=== PATIENT | male | born 1970 | race African-American/Black ===

== ENCOUNTER 2023-05-01 00:35 | Emergency (ER) | payer SELFPAY ==
[2023-05-01 00:42] VITALS: BP 148/104; PULSE 103; RESP 18; TEMP 36.2; O2SAT 98
--- NOTE | 2023-05-01 01:13 | ED.GENADULT ---
HPI - General Adult General Chief complaint: Dental/Oral Stated complaint: possible dental abcess Time Seen by Provider: 05/01/23 00:44 Source: patient Mode of arrival: ambulatory Limitations: no limitations History of Present Illness HPI narrative: This is a 53-year-old male who presents to the ED with chief complaint of left upper dental pain beginning 4 days ago. Reports he has had intermittent problems in the side of the mouth for several months and has a dentist appointment scheduled at the end of May. However he noticed a little bit more swelling in the left side of the face and some yellowish drainage in the last couple of days. No relief with ibuprofen and Tylenol. Denies fevers, chills, nausea, vomiting. Denies trismus, drooling. Related Data Allergies Allergy/AdvReac Type Severity Reaction Status Date / Time No Known Allergies Allergy Verified 05/01/23 00:48 Review of Systems Review of Systems: All systems as dictated in HPI Exam Narrative: GENERAL: Well-appearing, well-nourished, and in no acute distress. HEAD: Normocephalic, atraumatic. EYES: PERRLA and EOMI. ENT: Nares clear, no rhinorrhea or epistaxis. Mucous membranes moist. Oropharynx without tonsillar hypertrophy exudate or other lesions. NECK: Supple. No adenopathy or masses. CHEST: No respiratory distress. Clear to auscultation. No wheezes rales or rhonchi HEART: Regular rate and rhythm. No murmur heard. Normal peripheral pulses. ABDOMEN: Soft, nontender, nondistended, normal active bowel sounds. MSK: Normal range of motion. No edema. SKIN: Warm, dry, no rash. NEURO: Alert and oriented x3. No focal deficits. PSYCH: Normal mood and affect. Course Vital Signs Vital signs: Vital Signs Temperature 97.2 F L 05/01/23 00:42 Pulse Rate 103 H 05/01/23 00:42 Respiratory Rate 18 05/01/23 00:42 Blood Pressure 148/104 H 05/01/23 00:42 Pulse Oximetry 98 05/01/23 00:42 Oxygen Delivery Room Air 05/01/23 00:42 Temperature 97.2 F L 05/01/23 00:42 Pulse Rate 103 H 05/01/23 00:42 Respiratory Rate 18 05/01/23 00:42 Blood Pressure 148/104 H 05/01/23 00:42 Pulse Oximetry 98 05/01/23 00:42 Oxygen Delivery Room Air 05/01/23 00:42 Medical Decision Making MDM Narrative Medical decision making narrative: This is a male who presents to the ED with chief complaint of left upper dental pain ongoing for the past 4 days. This has been an intermittent problem for several weeks but he is unable to get into his dentist until the end of May. Vitals show initial slight tachycardia and elevated blood pressure likely due to pain. Afebrile. Exam shows tenderness in the maxillary area. Mild swelling as well. Floor the mouth is intact. No trismus or drooling. No pain with EOMs. Symptoms consistent with dental infection. Prescription for Augmentin and short course of Bath given. Pt will be discharged in stable condition. Return precautions given and supportive measures discussed. Pt is understanding and agreeable with plan for discharge and follow-up with PCP/dentist. Vital Signs Vital Signs: Vital Signs Temperature 97.2 F L 05/01/23 00:42 Pulse Rate 103 H 05/01/23 00:42 Respiratory Rate 18 05/01/23 00:42 Blood Pressure 148/104 H 05/01/23 00:42 Pulse Oximetry 98 05/01/23 00:42 Oxygen Delivery Room Air 05/01/23 00:42 Temperature 97.2 F L 05/01/23 00:42 Pulse Rate 103 H 05/01/23 00:42 Respiratory Rate 18 05/01/23 00:42 Blood Pressure 148/104 H 05/01/23 00:42 Pulse Oximetry 98 05/01/23 00:42 Oxygen Delivery Room Air 05/01/23 00:42 Discharge Plan Discharge Clinical Impression: Dental caries, Gingivitis Patient Disposition: Home, Self-Care Condition: Stable Instructions: Antibiotic Form, Toothache (ED) Additional Instructions: Your exam shows evidence of dental cavities and possible infection. Overall exam is reassuring and you should be able to g
[2023-05-01] MEDS: HYDROcodone/acetaminophen (*CRX) 7.5-325 MG TABLET 1 TAB PO (01:24)
[2023-05-01] MEDS: AMOXICILLIN/CLAVULANATE K 875-125 MG TAB 1 TABLET PO (01:24)
== END 2023-05-01 01:33 | disposition home or self-care (01) ==
LOC: ANHED 01:31
PROVIDERS: Emergency Provider Physician Assistant; PCP Internal Medicine
DX: K02.9 Dental caries, unspecified (principal); K05.10 Chronic gingivitis, plaque induced
CPT/HCPCS: 99283; A9270

== ENCOUNTER 2023-05-22 23:04 | Emergency (ER) | payer SELFPAY ==
[2023-05-22 23:15] VITALS: BP 119/87; PULSE 98; RESP 18; TEMP 36.4; O2SAT 97
--- NOTE | 2023-05-23 00:52 | PC.NURSE ---
Pt states he will come back to be seen in the morning.
== END 2023-05-23 01:11 | disposition left against medical advice (07) ==
PROVIDERS: PCP Internal Medicine
DX: R09.81 Nasal congestion (principal)
CPT/HCPCS: 99199

== ENCOUNTER 2024-11-26 23:57 | Emergency (ER) | payer SELFPAY ==
--- OUTSIDE RECORDS SUMMARY | 2024-11-26 23:59 | XMS_ITS | Clinical Summary ---
Author Organization [facility] Address [address] [place] [address] Phone Care Team Providers Care Seam Stay Stitcher Name Role Phone Unavailable Primary Care Provider Unavailabl e Allergies No known active allergies Medications amLODIPine (NORVASC) 10 mg Oral tablet Take 10 mg by mouth daily. Active hydroCHLOROthiaz isabel 25 mg tablet Take 25 mg by mouth daily. Active predniSONE (DELTASONE) 10 mg tablet Take 6 pills on day 1 , then 5 pills on day 2 then 4 pills on day 3 then 3 pills on day 4 then 2 pills on day 5 then 1 pill .. 21 Tablet None 8 Active methylPREDNISolo ne (MEDROL, ZAYDA,) 4 mg Tablets, Dose Pack As directed. 1 Package None 9 Active codeine-guaiFENe sin (ROBITUSSIN-AC) 10-100 mg/5 mL LiquidIndication s:Acute bronchitis, unspecified organism Take 10 mL by mouth every 4 hours as needed for Cough. 118 mL 9 Active fluticasone propionate (FLONASE) 50 mcg/spray [place], Suspension nasal inhaler Administer 2 Sprays in each nostril daily. 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 Gender Identity Not on file Sexual Orientation Not on file Occupation Industry Job Start Date Job End Date Not on file Not on file Not on file Not on file Last Filed Vital Signs Vital Sign Reading Time Taken Comments Blood Pressure 138/88 01/20/2019 2:06 AM CDT Pulse 82 01/20/2019 2:06 AM CDT Temperature 37.1 C (98.7 F) 01/20/2019 2:06 AM CDT Respiratory Rate 16 01/20/2019 12:39 AM CDT Oxygen Saturation 99% 01/20/2019 2:06 AM CDT Inhaled Oxygen Concentration - - Weight 124.7 kg (275 lb) 01/20/2019 12:39 AM CDT Height 190.5 cm (6' 3 ) 01/20/2019 12:39 AM CDT Body Mass Index 34.37 01/20/2019 12:39 AM CDT Plan of Treatment Health Maintenance Due Date Last Done Comments DTAP/TDAP/TD VACCINES (1 - Tdap) 01/03/1988 HEPATITIS B VACCINES (1 of 3 - 19+ 3-dose series) 12/15 COLORECTAL SCREENING 2014 Colorectal Cancer Screening 2014 FIT-DNA Q 3 years 2014 FIT/FOBT Q 1 year 2014 Flex Sig/CT Colonography Q 5 years 2014 ZOSTER VACCINE (1 of 2) 2019 INFLUENZA VACCINE (#1) 2024 05/13/2018
--- OUTSIDE RECORDS SUMMARY | 2024-11-26 23:59 | XMS_ITS | Referral Summary ---
Author Organization [facility] Address [address] [place] [address] Care Team Providers Care Release Of Information Clerk Name Role Phone Sunny Villanueva MD Unavailable [phone] No, Physician Primary Care Provider [phone] Jeffrey Haas MA Unavailable Unavailable Angel Luis Fritz MD Unavailable [phone] Allergies No known active allergies Medications olopatadine (PATANOL) 0.1 % ophthalmic solutionIndication s:Allergic Conjunctivitis Administer 1 drop into both eyes 2 (two) times a day 5 mL 1 0 Active fluticasone propionate (FLONASE) 50 mcg/actuation nasal spray Administer 1 spray into each nostril 2 (two) times a day as needed for rhinitis Active aspirin 325 mg tabletIndications: cerebral ischemia,Cerebral Ischemia Take 1 tablet (325 mg total) by mouth daily 30 tablet 11 2 Active amLODIPine (NORVASC) 10 mg tablet Take 1 tablet (10 mg total) by mouth daily 30 tablet 1 2 Active butalbital-acetami nophen-caffeine (ESGIC) 50-325-40 mg per tablet Take 1 tablet by mouth every 6 (six) hours as needed for headaches 15 tablet 2 Active hydroCHLOROthiazid e (HYDRODIURIL) 25 mg tablet Take 1 tablet (25 mg total) by mouth daily 30 tablet 1 2 Active Active Problems Problem Noted Date Diagnosed Date Acute left-sided weakness 06/11/2022 Left-sided headache 06/11/2022 Acute CVA (cerebrovascular accident) 06/11/2022 Pneumonia due to COVID-19 virus 08/07/2020 Chest pain 07/19/2012 Gouty arthritis of toe 02/13/2012 Prediabetes Essential hypertension Stroke-like symptoms Resolved Problems Problem Noted Date Diagnosed Date Resolved Date URI (upper respiratory infection) 07/19/2012 10/30/2018 Essential hypertension 02/13/201208/07 Acute pharyngitis 10/30/2018 Immunizations Immunization Administration Dates Next Due Influenza, Quadrivalent, Lucia l Culture-based MDCK, Preservative Free, Antibiotic Free, Intramuscular 04/17/2019 Influenza, Quadrivalent, Spl it, Preservative Free, Intramuscular 05/13/2018 Influenza, Unspecified 06/15/2020 Social History Tobacco Use Types Packs/Day Years Used Date Smoking Tobacco: Never Smokeless Tobacco: Never Alcohol Use Standard Drinks/Week Comments Yes 0 (1 standard drink = 0.6 oz pur e alcohol) occasionally Social Connection and Isolat ion Panel [NHANES] Answer Date Recorded In a typical week, how many times do you talk on the phone with family, friends, or neighbors? Three times a week 06/12/2022 How often do you get togethe r with friends or relatives? More than three times a week 06/12/2022 How often do you attend chur ch or latter-day services? More than 4 times per year 06/12/2022 Do you belong to any clubs o r organizations such as baptism groups, unions, fraternal or athletic groups, or school groups? No 06/12/2022 How often do you attend meet ings of the clubs or organizations you belong to? Never 06/12/2022 Are you , , di vorced, , never , or living with a partner? Never 06/12/2022 Overall Financial Resource Strain (CARDIA) Answe r Date Recorded How hard is it for you to pa y for the very basics like food, housing, medical care, and heating? Not very hard 06/12/2022 Hunger Vital Sign Answer Date Recorded Within the past 12 months, y ou worried that your food would run out before you got the money to buy more. Never true 06/12/20 22 Within the past 12 months, t he food you bought just didn't last and you didn't have money to get more. Never true 06/12/2022 PRAPARE - Transportation Answer Date Re corded In the past 12 months, has l ack of transportation kept you from medical appointments or from getting medications? No 05/17 In the past 12 months, has l ack of transportation kept you from meetings, work, or from getting things needed for daily living? No 06/12/2022 Housing Stability Vital Sign Answer Reddy e Recorded In the last 12 months, was t here a time when you were not able to pay the mortgage or rent on time? No 06/12/2022 In the last 12 months, how many places have you lived? 1 06/12/2022 In the last 12 months, was t here a time when you did not have a steady place to sleep or slept in a fdc (including now)? 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 Gender Identity Not on file Sexual Orientation Not on file Last Filed Vital Signs Vital Sign Reading Time Taken Comments Blood Pressure 158/97 06/12/2022 3:45 PM CIDER PRESS OPERATOR Pulse 77 06/12/2022 3:45 PM CIDER PRESS OPERATOR Temperature 36.8 C (98.3 F) 06/12/2022 3:45 PM CIDER PRESS OPERATOR Respiratory Rate 18 06/12/2022 3:45 PM CIDER PRESS OPERATOR Oxygen Saturation 99% 06/12/2022 3:45 PM CIDER PRESS OPERATOR Inhaled Oxygen Concentration - - Weight 133 kg (293 lb 4.8 oz) 06/11/2022 7:10 PM CIDER PRESS OPERATOR Height 190.5 cm (6' 3 ) 06/11/2022 7:10 PM CIDER PRESS OPERATOR Body Mass Index 36.66 06/11/2022 7:10 PM CIDER PRESS OPERATOR Plan of Treatment Not on file Procedures Procedure Name Priority Date/Time Associated Diagnosis Comments EGFR Routine 06/12/2022 5:34 AM CIDER PRESS OPERATOR HEMOGLOBIN A1C Routine 06/12/2022 5:34 AM CIDER PRESS OPERATOR LIPID PANEL Routine 06/12/2022 5:34 AM CIDER PRESS OPERATOR from Last 3 Months or Most Recently Relevant to Health Maintenance Results * eGFR (06/12/2022 5:34 AM CIDER PRESS OPERATOR) eGFR 79 mL/min/1. 73 m2 [facility] Comment: Interpretive Data Reference Interval Normal >/= 90 mL/min/1.73m2 Mildly decreased* 60 - 89 mL/min/1.73m2 Mildly to moderately decreased 45 - 59 mL/min/1.73m2 Moderately to severely decreased 30 - 44 mL/min/1.73m2 Severely decreased 15 - 29 mL/min/1.73m2 Kidney Failure < 15 mL/min/1.73m2 *Relative to young adult level Estimated glomerular filtration rate is determined by the 2020 CKD-EPI equation recommended by the National Kidney Foundation (A Unifying Approach to GFR Estimation: Recommendations of the NKF-ASK Task Force on Reassessing the Inclusion of Race in Diagnosing Kidney Disease, JASN 2020). The CKD-EPI equation should not be used for patients with unstable renal function and has not been validated in children and those over 70. Current interpretive data was last reviewed 2021. Blood 06/12/2022 5:34 AM CIDER PRESS OPERATOR 06/12/2022 6:28 AM CIDER PRESS OPERATOR Sebastien Jackson DO LAB BLOOD ORDERABLES Fi nal Result [facility] [address] Department [place] [address] * Hemoglobin A1c (06/12/2022 5:34 AM CIDER PRESS OPERATOR) Pathologist [facility] Hgb A1C 5.6 4.0 - 5.6 % [facility] Estimated Average Glucose 114 mg/dL [facility] Comment: The ADA recommends reporting an estimated Average Glucose (eAG) with all Hemoglobin A1c results using the equation derived from a study of 507 normal and diabetic adults. Minority populations were underrepresented and children were not included. (Diabetes Care 31:7197-8083, 2008). The eAG is not equivalent to a fasting glucose. Blood 06/12/2022 5:34 AM CIDER PRESS OPERATOR 06/12/2022 6:28 AM CIDER PRESS OPERATOR us Sebastien Jackson DO LAB BLOOD ORDERABLES Fi nal Result [facility] [address] Department [place] [address] * Lipid panel (06/12/2022 5:34 AM CIDER PRESS OPERATOR) Cholesterol 193 30 - 199 mg/dL [facility] Comment: Interpretive Data Ages < or = 19 years Acceptable: <170 mg/dL Borderline high: 170-199 mg/dL High: >or= 200 mg/dL Ages > or = 20 years Desirable: <200 mg/dL Borderline high: 200-239 mg/dL High: >or= 240 mg/dL Literature References: 1. Expert Panel on Integrated Guidelines for Cardiovascular Health and Risk Reduction in Children and Adolescents. Pediatrics 2011;128:S213 2. NCEP Expert Panel. Circulation 2004;110:227 Current Interpretive Data was last revised on 2018. Triglycerides 104 <=149 mg/dL [facility] Comment: Interpretive Data Ages < or = 9 years Acceptable: <75 mg/dL Borderline high: 75-99 mg/dL High: >or= 100 mg/dL Ages 10 to 20 years Acceptable: <90 mg/dL Borderline high: 90-129 mg/dL High: >or= 130 mg/dL Ages > or = 20 years Desirable: <150 mg/dL Borderline high: 150-199 mg/dL High: 200-499 mg/dL Very high: >or= 499 mg/dL Literature References: 1. Expert Panel on Integrated Guidelines for Cardiovascular Health and Risk Reduction in Children and Adolescents. Pediatrics 2011;128:S213 2. NCEP Expert Panel. Circulation 2004;110:227 Current Interpretive Data was last revised on 2018. HDL 43 >=40 mg/dL [facility] Comment: Interpretive Data Ages < or = 19 years Acceptable: >45 mg/dL Borderline low: 40-45 mg/dL Low: <40 mg/dL Ages > or = 20 years Desirable: >or= 60 mg/dL Low: <40 mg/dL Literature References: 1. Expert Panel on Integrated Guidelines for Cardiovascular Health and Risk Reduction in Children and Adolescents. Pediatrics 2011;128:S213 2. NCEP Expert Panel. Circulation 2004;110:227 Current Interpretive Data was last revised on 2018. LDL, calculated 129 <=129 mg/dL [facility] Comment: Interpretive Data Ages < or = 19 years Acceptable: <110 mg/dL Borderline high: 110-129 mg/dL High: >or= 130 mg/dL Ages > or = 20 years Optimal: <100 mg/dL Near optimal: 100-129 mg/dL Borderline high: 130-159 mg/dL High: >160 mg/dL Literature References: 1. Expert Panel on Integrated Guidelines for Cardiovascular Health and Risk Reduction in Children and Adolescents. Pediatrics 2011;128:S213 2. NCEP Expert Panel. Circulation 2004;110:227 Current Interpretive Data was last revised on 2018. Non-HDL Cholesterol 150 mg/dL [facility] Comment: Interpretive Data Ages < or = 19 years Acceptable: <120 mg/dL Borderline high: 120-144 mg/dL High: >145 mg/dL Ages > or = 20 years When triglycerides are >200 mg/dL, Non-HDL cholesterol is a secondary target of therapy with treatment goals that are 30 mg/dL greater than the LDL cholesterol target. Literature References: 1. Expert Panel on Integrated Guidelines for Cardiovascular Health and Risk Reduction in Children and Adolescents. Pediatrics 2011;128:S213 2. NCEP Expert Panel. Circulation 2004;110:227 Current Interpretive Data was last revised on 2018. Chol/HDL ratio 4 [facility] Blood 06/12/2022 5:34 AM CIDER PRESS OPERATOR 06/12/2022 6:28 AM CIDER PRESS OPERATOR Sebastien Jackson DO LAB BLOOD ORDERABLES Fi nal Result [facility] [address] [place] [address] from Last 3 Months or Most Recently Relevant to Health Maintenance Insurance MEDICARE MEDICARE MEDICARE Advance Directives For more information, please contact: [phone] * Full Code (Latest Code Status on File) Date Activated Date Inactivated Comments 06/11/2022 7:01 PM 06/12/2022 10:19 PM * Full Code Date Activated Date Inactivated Comments 08/07/2020 3:35 AM 08/09/2020 6:09 PM * Full Code Date Activated Date Inactivated Comments 08/07/2020 12:47 AM 08/07/2020 3:05 AM * Full Code Date Activated Date Inactivated Comments 12/26/2017 7:06 PM 12/28/2017 3:49 PM Care Teams Release Of Information Clerk Relationship Specialty Start Date End Date No, Physician PCP - General 08/29/21 Sunny Villanueva MD 01/18/19 Jeffrey Haas MA [address] [facility] [address] [place] [address] Patient Navigator 12/20/21 Angel Luis Fritz MD [address] [facility] [address] [place] [address] Consulting Physician Neurology 06/12/22
--- OUTSIDE RECORDS SUMMARY | 2024-11-26 23:59 | XMS_ITS | Clinical Summary ---
Author Organization [facility] Address [address] [place] [address] Care Team Providers Care Guest Services Agent Name Role Phone Sunny Villanueva MD Primary Care Provider [phone] Source Comments [facility],non-owned Affiliates and Associated Physician Practices is amultiple site organization consisting of ambulatory clinics and hospital sitesin [place], [place], [place] and [place]. This disclosure is being madepursuant to the Care Everywhere program and may not contain all information available regarding this patient. Last updated 18.[facility] Allergies No known active allergies Medications * Be aware that medications may not be up to date on this document. Alwaysverify current medications with the patient. albuterol (PROVENTIL; VENTOLIN) 90 MCG/ACT inhaler Inhale 1-2 Puffs by mouth every 4 hours as needed for Shortness of Breath or Wheezing. 1 Inhaler 0 3 Active Additional Information Patient not taking.Reported on 01/18/2022 allopurinol (ZYLOPRIM) 100 MG tablet Take 1 (one) tablet by mouth once daily 30 tablet 2 Active acetaminophen (TYLENOL) 325 MG tablet Take 2 (two) tablets by mouth every 6 hours as needed for Fever or Pain Maximum allowable Acetaminophen amount = 4 Grams (4000 mg) / 24 hours. 60 tablet 2 Active Additional Information Patient not taking.Reported on 01/18/2022 HYDROcodone-ac etaminophen (NORCO) 5-325 MG tablet Take 1 (one) tablet by mouth every 6 hours as needed for Pain 5 tablet 2 Active Additional Information Patient not taking.Reported on 01/18/2022 amLODIPine (NORVASC) 5 MG tablet 2 Active aspirin EC (ECOTRIN) 81 MG tablet Take 81 mg by mouth once daily 1 Active fluticasone propionate (FLONASE) 50 MCG/ACT nasal spray SHAKE LIQUID AND USE 2 SPRAYS IN EACH NOSTRIL DAILY 2 Active hydroCHLOROthi azide (HYDRODIURIL) 25 MG tablet TAKE 1 TABLET BY MOUTH EVERY DAY IN THE MORNING 2 Active olopatadine (PATADAY) 0.2 % ophthalmic solution 2 Active Active Problems Problem Noted Date Diagnosed Date URI (upper respiratory infection) 07/19/2012 Chest pain 07/19/2012 Gouty arthritis of toe 02/13/2012 HTN (hypertension) 02/13/2012 Social History Tobacco Use Types Packs/Day Years Used Date Smoking Tobacco: Never Smokeless Tobacco: Never Tobacco Cessation:Counseling Given: Yes Alcohol Use Standard Drinks/Week Comments No 0 (1 standard drink = 0.6 oz pur e alcohol) once a week AUDIT-C Answer Date Recorded Q1: How often do you have a drink containing alc ohol? Never 10/12/2021 Average Number of Drinks Not on file 022 Frequency of Binge Drinking Not on file 09/15 Sex and Gender Information Value Date Recorded Sex Assigned at Not on file Legal Sex Male 4:34 PM CDT Gender Identity Not on file Sexual Orientation Not on file Last Filed Vital Signs Vital Sign Reading Time Taken Comments Blood Pressure 136/95 01/18/2022 7:45 PM CDT Pulse 101 01/18/2022 7:45 PM CDT Temperature 36.7 C (98 F) 01/18/2022 7:45 PM CDT Respiratory Rate 18 01/18/2022 7:45 PM CDT Oxygen Saturation 98% 01/18/2022 7:45 PM CDT Inhaled Oxygen Concentration - - Weight 127 kg (280 lb) 01/18/2022 7:45 PM CDT Height 182.9 cm (6') 01/18/2022 7:45 PM CDT Body Mass Index 37.97 01/18/2022 7:45 PM CDT Plan of Treatment Health Maintenance Due Date Last Done Comments COLOGUARD (AGES 45-75) - COLON CA SCREENING 1969 COLON MONITORING 1969 COLONOSCOPY - COLON CA SCREENING 1969 CT COLONOGRAPHY - COLON CA SCREENING 1969 Colorectal Cancer Screening 1969 FIT - COLON CA SCREENING 1969 FLEX SIG - COLON CA SCREENING 1969 MEDICARE AWV 12 MONTHS 1969 HIV SCREENING 01/03/1984 HEPATITIS C SCREENING 12/29/1986 DTAP/TDAP/TD VACCINES (1 - Tdap) 01/03/1988 HEPATITIS B VACCINE (1 of 3 - 19+ 3-dose series) 01/03/1988 PNEUMOCOCCAL VACCINE 50+ (1 of 1 - PCV) 2019 ZOSTER VACCINE (1 of 2) 2019 COVID-19 VACCINE (1 - 2023- season) 2024 DEPRESSION SCREENING 07/16/2024 INFLUENZA VACCINE (Season Ended) 2025 05/25/2021, 06/15/2020, 04/23/2020, Additional history exists LIPID TESTING 09/04/2026 09/04/2021 HIB VACCINE Aged Out No longer eligi ble based on patient's age to complete this topic HPV VACCINE Aged Out No longer eligi ble based on patient's age to complete this topic MENINGOCOCCAL (Group B) VACCINE SHARED DECISION-MAKING Aged Out No longer eligible based on patient's age to complete this topic MENINGOCOCCAL GROUPS A/C/Y/W VACCINE Aged Out No longer eligible based on patient's age to complete this topic Insurance MEDICARE Care Teams Guest Services Agent Relationship Specialty Start Date End Date Sunny Villanueva MD PCP - General Internal Medicine 03/17/17
--- OUTSIDE RECORDS SUMMARY | 2024-11-26 23:59 | XMS_ITS | Clinical Summary ---
Author Organization [facility] Address [address] [place] [address] Care Team Providers Care Brim Raiser Name Role Phone Sunny Villanueva MD Unavailable [phone] No, Physician Primary Care Provider [phone] Jeffrey Haas MA Unavailable Unavailable Angel Luis Fritz MD Unavailable [phone] Allergies No known active allergies Medications olopatadine [...] Preservative Free, Intramuscular 05/13/2018 Influenza, Unspecified 06/15/2020 Surgical History Surgery Date Site/Laterality Comments TUBE THORACOTOMY Bilateral Medical History Medical History Date Comments Hypertension Gout Seasonal allergies Obesity Hyperglycemia Patient with his tory of hyperglycemia in the past, treated transiently for diabetes but not currently consider diabetic or prediabetic and on no medication for hyperglycemia Diabetes mellitus (HCC) Family History Relation Name Status Comments Father Father of end-stage renal disease Mother Mother of liver cancer Social History Tobacco Use Types Packs/Day Years [...] 06/12/2022 How often do you attend chur or islam services? More than 4 times per year 06/12/2022 Do you belong to any clubs o r organizations such as restorationist groups, unions, fraternal or athletic groups, or [...] place to sleep or slept in a assisted (including now)? No 06/12/2022 Personal Safety Answer Date Recorded Getting School Help Needed Not on file 06/29 Sex and Gender Information Value Date Recorded Sex Assigned at Not on file Legal Sex Male 1:21 AM SPORTS MEDICINE MASSEUR Gender Identity Not on file Sexual Orientation Not on file Obstetrics History Last Filed Vital Signs Vital Sign Reading Time Taken Comments Blood Pressure 158/97 06/12/2022 3:45 PM SPORTS MEDICINE MASSEUR Pulse 77 06/12/2022 3:45 PM SPORTS MEDICINE MASSEUR Temperature 36.8 C (98.3 F) 06/12/2022 3:45 PM SPORTS MEDICINE MASSEUR Respiratory Rate 18 06/12/2022 3:45 PM SPORTS MEDICINE MASSEUR Oxygen Saturation 99% 06/12/2022 3:45 PM SPORTS MEDICINE MASSEUR Inhaled Oxygen Concentration - - Weight 133 kg (293 lb 4.8 oz) 06/11/2022 7:10 PM SPORTS MEDICINE MASSEUR Height 190.5 cm (6' 3 ) 06/11/2022 7:10 PM SPORTS MEDICINE MASSEUR Body Mass Index 36.66 06/11/2022 7:10 PM SPORTS MEDICINE MASSEUR Plan of Treatment Health Maintenance Due Date Last Done Comments Albumin Creatinine Ratio, Urine 1969 Colon Cancer Screening-Colonoscopy 1969 Depression Screening 1969 Hepatitis C Screening 1969 Prostate Cancer Screening-PSA 1969 Dilated Eye Exam 1969 Foot Exam 1969 DTaP/Tdap/Td Vaccine (1 - Tdap) 01/03/1980 Hepatitis B Screening 1987 Regular Well Visit/Exam 18-64 1987 Pneumococcal vaccine <65 (1 of 2 - PCV) 01/03/1988 Zoster Vaccine (1 of 2) 2019 Hemoglobin A1C 12/10/2022 06/12/2022, 07/17, 12/20/2018, Additional history exists Lipid Panel 06/12/2023 06/12/2022, 08/17, 12/26/2017, Additional history exists eGFR 06/12/2023 06/12/2022, 05/17, 07/09/2021, Additional history exists Influenza Vaccine (#1) 2024 , 05/25/2021, 06/15/2020, Additional history exists Procedures Procedure Name Priority Date/Time Associated Diagnosis Comments EGFR Routine 06/12/2022 5:34 AM SPORTS MEDICINE MASSEUR HEMOGLOBIN A1C Routine 06/12/2022 5:34 AM SPORTS MEDICINE MASSEUR LIPID PANEL Routine 06/12/2022 5:34 AM SPORTS MEDICINE MASSEUR from Last 3 Months or Most Recently Relevant to Health Maintenance Results * eGFR (06/12/2022 5:34 AM SPORTS MEDICINE MASSEUR) eGFR 79 mL/min/1. 73 m2 [facility] Comment: Interpretive Data Reference Interval Normal >/= [...] last reviewed 2021. Blood 06/12/2022 5:34 AM SPORTS MEDICINE MASSEUR 06/12/2022 6:28 AM SPORTS MEDICINE MASSEUR Sebastien Jackson DO LAB BLOOD ORDERABLES Fi nal Result Performing Organization Address [facility] Co de Phone Number [facility] [address] [place] [address] * Hemoglobin A1c (06/12/2022 5:34 AM SPORTS MEDICINE MASSEUR) Hgb A1C 5.6 4.0 - 5.6 % [facility] Estimated Average Glucose 114 mg/dL [facility] Comment: The ADA recommends reporting an estimated Average Glucose (eAG) with all Hemoglobin A1c results using the equation derived from a study of 507 normal and diabetic adults. Minority populations were underrepresented and children were not included. (Diabetes Care 31:0072-3809, 2008). The eAG is not equivalent to a fasting glucose. Blood 06/12/2022 5:34 AM SPORTS MEDICINE MASSEUR 06/12/2022 6:28 AM SPORTS MEDICINE MASSEUR Sebastien Jackson DO LAB BLOOD ORDERABLES Fi nal Result Performing Organization Address [facility] Co de Phone Number [facility] [address] [place] [address] * Lipid panel (06/12/2022 5:34 AM SPORTS MEDICINE MASSEUR) Cholesterol 193 30 - 199 mg/dL [facility] Comment: Interpretive Data Ages < or = [...] revised on 2018. Triglycerides 104 <=149 mg/dL [facility] Comment: Interpretive Data Ages < or = [...] Pediatrics 2011;128:S213 2. NCEP Expert Panel. Circulation 2003;110:227 Current Interpretive Data was last revised on 2018. HDL 43 >=40 mg/dL [facility] Comment: Interpretive Data Ages < or = 19 years Acceptable: >45 mg/dL Borderline low: 40-45 mg/dL Low: <40 mg/dL Ages > or = 20 years Desirable: >or= 60 mg/dL Low: <40 mg/dL Literature References: 1. Expert Panel on Integrated Guidelines for Cardiovascular Health and Risk Reduction in Children and Adolescents. Pediatrics 2011;128:S213 2. NCEP Expert Panel. Circulation 2003;110:227 Current Interpretive Data was last revised on 2018. LDL, calculated 129 <=129 mg/dL [facility] Comment: Interpretive Data Ages < or = [...] Pediatrics 2011;128:S213 2. NCEP Expert Panel. Circulation 2003;110:227 Current Interpretive Data was last revised on 2018. Non-HDL Cholesterol 150 mg/dL [facility] Comment: Interpretive Data Ages < or = [...] last revised on 2018. Chol/HDL ratio [address] [facility] Blood 06/12/2022 5:34 AM SPORTS MEDICINE MASSEUR 06/12/2022 6:28 AM SPORTS MEDICINE MASSEUR Sebastien Jackson DO LAB BLOOD ORDERABLES nal Result [facility] [address] [place] [address] from Last 3 Months or Most Recently Relevant to Health Maintenance Insurance MEDICARE [facility] Address: [address] [address] [place] [address] MEDICARE MEDICARE Advance Directives For more information, please contact: [phone] * Full Code (Latest Code Status on File) Date Activated Date Inactivated Comments 06/11/2022 7:01 PM 06/12/2022 10:19 PM * Full Code Date Activated Date Inactivated Comments 08/07/2020 3:35 AM 08/09/2020 6:09 PM * Full Code Date Activated Date Inactivated Comments 08/07/2020 12:47 AM 08/07/2020 3:05 AM * Full Code Date Activated Date Inactivated Comments 12/26/2017 7:06 PM 12/28/2017 3:49 PM Care Teams Brim Raiser Relationship Specialty Start Date End Date No, Physician PCP - General 08/29/21 Sunny Villanueva MD 01/18/19 Jeffrey Haas, MA [address] [place] [address] [place] [address] Patient Navigator 12/20/21 Angel Luis Fritz MD [address] [address] Consulting Physician Neurology 06/12/22
--- OUTSIDE RECORDS SUMMARY | 2024-11-26 23:59 | XMS_ITS | Clinical Summary ---
Author Organization [facility] Address [address] [place] [address] Care Team Providers Care Server Systems Administrator Name Role Phone Sunny Villanueva MD Primary Care Provider [phone] Allergies No known active allergies Medications ondansetron (ZOFRAN-ODT) 4 MG disintegrating tablet Take 1 tablet (4 mg total) by mouth every 8 (eight) hours as needed for Nausea. 20 tablet 3 Active fluticasone propionate (FLONASE) 50 MCG/ACT nasal spray 1 spray by Nasal route daily. 16 g 1 3 Active predniSONE (DELTASONE) 20 MG tablet Take 2 tablets (40 mg total) by mouth daily for 4 days, THEN 1 tablet (20 mg total) daily for 3 days, THEN 0.5 tablets (10 mg total) daily for 3 days., 10 tablet 3 Active amLODIPine (NORVASC) 10 MG tablet Take 1 tablet (10 mg total) by mouth daily. 30 tablet 3 Active hydroCHLOROthiazide (HYDRODIURIL) 25 MG tablet Take 1 tablet (25 mg total) by mouth every morning. 30 tablet 3 Active HYDROcodone-acetami nophen (NORCO) 5-325 MG tabletIndications:A cute Pain < 3 Day Supply Take 1 tablet by mouth every 6 (six) hours as needed. Indications: Acute Pain < 3 Day Supply 10 tablet 3 Active Active Problems No known active problems Social History Tobacco Use Types Packs/Day Years Used Date Smoking Tobacco: Unknown Tobacco Cessation:Counseling Given: Not Answered Sex and Gender Information Value Date Recorded Sex Assigned at Not on file Legal Sex Male 8:02 PM CDT Gender Identity Not on file Sexual Orientation Not on file Last Filed Vital Signs Vital Sign Reading Time Taken Comments Blood Pressure 132/105 01/03/2023 1:38 AM CDT Pulse 102 01/03/2023 1:38 AM CDT Temperature 36.6 C (97.8 F) 01/03/2023 1:38 AM CDT Respiratory Rate 16 01/03/2023 1:38 AM CDT Oxygen Saturation 97% 01/03/2023 1:38 AM CDT Inhaled Oxygen Concentration - - Weight 127.7 kg (281 lb 8.4 oz) 01/03/2023 1:38 AM CDT Height 190.5 cm (6' 3 ) 01/03/2023 1:38 AM CDT Body Mass Index 35.19 01/03/2023 1:38 AM CDT Plan of Treatment Health Maintenance Due Date Last Done Comments Colorectal Cancer Screening Colonoscopy (10 Years) 1969 Annual Physical 01/03/1972 Hepatitis C 1987 DTaP, Tdap and Td Vaccines ( 1 - Tdap) 01/03/1988 Hepatitis B Vaccines (1 of 3 - 19+ 3-dose series) 01/03/1988 Pneumococcal Vaccine: 50+ Ye ars (1 of 1 - PCV) 2019 Zoster Vaccines (1 of 2) 2019 COVID-19 Vaccine ( - 2023-2 5 season) 2024 Meningococcal B Vaccine Aged Out No l onger eligible based on patient's age to complete this topic Meningococcal Vaccine Aged Out No manju galen eligible based on patient's age to complete this topic RSV Immunizations Under 20 Months Aged Out No longer eligible based on patient's age to complete this topic Insurance MEDICARE Care Teams Server Systems Administrator Relationship Specialty Start Date End Date Sunny Villanueva MD PCP - General INTERNAL MEDICINE 11/27/17
[2024-11-27 00:01] VITALS: BP 139/94; PULSE 84; RESP 14; TEMP 36.8; O2SAT 97
--- NOTE | 2024-11-27 00:24 | ED.GENADULT ---
HPI - General Adult General Chief complaint: Dental/Oral Stated complaint: Upper left jaw pain from broken tooth Time Seen by Provider: 11/27/24 00:05 History of Present Illness HPI narrative: This is a 54-year-old male presenting with dental pain. Has poor dentition has multiple missing teeth. His left upper premolar/incisors have been hurting. He has not seen a dentist yet as he cannot afford it. Related Data Allergies Allergy/AdvReac Type Severity Reaction Status Date / Time No Known Allergies Allergy Verified 11/26/24 23:58 Exam Narrative: APPEARANCE: No apparent distress. Head: Very poor dentition with multiple teeth rotted below the gum line, no evidence of abscess or ludwigs EYES: EOMI, NOSE: Atraumatic NECK: Trachea midline RESPIRATORY: No increased rate of breathing CARDIOVASCULAR: RRR, ABDOMINAL: Non-distended MUSCULOSKELETAl: No obvious deformities NEURO: Alert. Moving 4/4 extremities SKIN:: Warm, dry. Normal color PSYCHIATRIC: Normal affect Course Vital Signs Vital signs: Vital Signs Temperature 98.2 F 11/27/24 00:01 Pulse Rate 84 11/27/24 00:01 Respiratory Rate 14 11/27/24 00:01 Blood Pressure 139/94 H 11/27/24 00:01 Pulse Oximetry 97 11/27/24 00:01 Temperature 98.2 F 11/27/24 00:01 Pulse Rate 84 11/27/24 00:01 Respiratory Rate 14 11/27/24 00:01 Blood Pressure 139/94 H 11/27/24 00:01 Pulse Oximetry 97 11/27/24 00:01 Medical Decision Making [facility] Narrative Medical decision making narrative: -Course: 54-year-old male presenting for dental pain. The options presented the patient or a dental block or oral pain medication. I explained to the patient that I would give him opiate pain medication here in the ED but I would not give him any opiate prescriptions. The patient declined the oxycodone, Tylenol and dental block and said he would take a shot of Toradol. He then left the ER immediately after I left the room. -DDX includes but is not limited to: Dental caries, toothache dental infection, drug seeking Vital Signs Vital Signs: Vital Signs Temperature 98.2 F 11/27/24 00:01 Pulse Rate 84 11/27/24 00:01 Respiratory Rate 14 11/27/24 00:01 Blood Pressure 139/94 H 05/15/25 00:01 Pulse Oximetry 97 11/27/24 00:01 Temperature 98.2 F 11/27/24 00:01 Pulse Rate 84 11/27/24 00:01 Respiratory Rate 14 11/27/24 00:01 Blood Pressure 139/94 H 11/27/24 00:01 Pulse Oximetry 97 11/27/24 00:01 Discharge Plan Discharge Clinical Impression: Toothache Patient Disposition: Elopement After Seen by Prov Patient Language: Kenyan Prescriptions: No Action hydrocodone-acetaminophen 5-325 mg tablet 1 tablet PO Q8H PRN (Reason: pain) Qty: 12 0RF amoxicillin-pot clavulanate 875-125 mg tablet 1 tablet PO Q12H Qty: 14 0RF Follow-up/Referrals: Rich,MD Sunny [Primary Care Provider] - Stand Alone Forms: Work/School Release IP
--- NOTE | 2024-11-27 00:25 | PC.NURSE ---
Pt came to triage from treatment room stating that he did not want to stay after being seen by ERP. Pt axox4 and steady gait.
--- OUTSIDE RECORDS SUMMARY | 2024-11-27 00:36 | XMS_ITS | Clinical Summary ---
Author Organization [facility] Address [address] [place] [address] Care Team Providers Care Dealer Compliance Representative Name Role Phone Sunny Villanueva MD Unavailable [phone] No, Physician Primary Care Provider [phone] Jeffrey Haas MA Unavailable Unavailable Angel Luis Fritz MD Unavailable [phone] Allergies No known active allergies Medications olopatadine [...] How often do you attend chur or scientologist services? More than 4 times per year 06/12/2022 Do you belong to any clubs o r organizations such as temple groups, unions, fraternal or athletic groups, or [...] place to sleep or slept in a chcf (including now)? No 06/12/2022 Personal Safety Answer Date Recorded Getting School Help Needed Not on file 06/29 Sex and Gender Information Value Date Recorded Sex Assigned at Not on file Legal Sex Male 1:21 AM RIDE OPERATOR Gender Identity Not on file Sexual Orientation Not on file Obstetrics History Last Filed Vital Signs Vital Sign Reading Time Taken Comments Blood Pressure 158/97 06/12/2022 3:45 PM RIDE OPERATOR Pulse 77 06/12/2022 3:45 PM RIDE OPERATOR Temperature 36.8 C (98.3 F) 06/12/2022 3:45 PM RIDE OPERATOR Respiratory Rate 18 06/12/2022 3:45 PM RIDE OPERATOR Oxygen Saturation 99% 06/12/2022 3:45 PM RIDE OPERATOR Inhaled Oxygen Concentration - - Weight 133 kg (293 lb 4.8 oz) 06/11/2022 7:10 PM RIDE OPERATOR Height 190.5 cm (6' 3 ) 06/11/2022 7:10 PM RIDE OPERATOR Body Mass Index 36.66 06/11/2022 7:10 PM RIDE OPERATOR Plan of Treatment Health Maintenance Due Date [...] Diagnosis Comments EGFR Routine 06/12/2022 5:34 AM RIDE OPERATOR HEMOGLOBIN A1C Routine 06/12/2022 5:34 AM RIDE OPERATOR LIPID PANEL Routine 06/12/2022 5:34 AM RIDE OPERATOR from Last 3 Months or Most Recently Relevant to Health Maintenance Results * eGFR (06/12/2022 5:34 AM RIDE OPERATOR) eGFR 79 mL/min/1. 73 m2 [facility] Comment: Interpretive Data Reference Interval Normal [...] last reviewed 2021. Blood 06/12/2022 5:34 AM RIDE OPERATOR 06/12/2022 6:28 AM RIDE OPERATOR Sebastien Jackson DO LAB BLOOD ORDERABLES Fi nal Result Performing Organization Address [facility] Co de Phone Number [facility] [address] [place] [address] * Hemoglobin A1c (06/12/2022 5:34 AM RIDE OPERATOR) Hgb A1C 5.6 4.0 - 5.6 % [facility] Estimated Average Glucose 114 mg/dL [facility] Comment: The ADA recommends reporting an estimated Average Glucose (eAG) with all Hemoglobin A1c results using the equation derived from a study of 507 normal and diabetic adults. Minority populations were underrepresented and children were not included. (Diabetes Care 31:3533-2093, 2008). The eAG is not equivalent to a fasting glucose. Blood 06/12/2022 5:34 AM RIDE OPERATOR 06/12/2022 6:28 AM RIDE OPERATOR Sebastien Jackson DO LAB BLOOD ORDERABLES Fi nal Result Performing Organization Address [facility] Co de Phone Number [facility] [address] [place] [address] * Lipid panel (06/12/2022 5:34 AM RIDE OPERATOR) Cholesterol 193 30 - 199 mg/dL [facility] Comment: Interpretive Data Ages < or [...] revised on 2018. Triglycerides 104 <=149 mg/dL [facility] Comment: Interpretive Data Ages < or [...] revised on 2018. HDL 43 >=40 mg/dL [facility] Comment: Interpretive Data Ages < or [...] on 2018. LDL, calculated 129 <=129 mg/dL [facility] Comment: Interpretive Data Ages < or [...] revised on 2018. Non-HDL Cholesterol 150 mg/dL [facility] Comment: Interpretive Data Ages < or [...] last revised on 2018. Chol/HDL ratio 4 [facility] Blood 06/12/2022 5:34 AM RIDE OPERATOR 06/12/2022 6:28 AM RIDE OPERATOR Sebastien Jackson DO LAB BLOOD ORDERABLES nal Result [facility] [address] [place] [address] from Last 3 Months or Most Recently Relevant to Health Maintenance Insurance MEDICARE MEDICARE MEDICARE Advance Directives For more information, please contact: [phone] * Full Code (Latest Code Status on File) Date Activated Date Inactivated Comments 06/11/2022 7:01 PM 06/12/2022 10:19 PM * Full Code Date Activated Date Inactivated Comments 08/07/2020 3:35 AM 08/09/2020 6:09 PM * Full Code Date Activated Date Inactivated Comments 08/07/2020 12:47 AM 08/07/2020 3:05 AM * Full Code Date Activated Date Inactivated Comments 12/26/2017 7:06 PM 12/28/2017 3:49 PM Care Teams Dealer Compliance Representative Relationship Specialty Start Date End Date No, Physician PCP - General 08/29/21 Sunny Villanueva MD 01/18/19 Jeffrey Haas, MA [address] [place] [address] [place] [address] Patient Navigator 12/20/21 Angel Luis Fritz MD [address] [address] Consulting Physician Neurology 06/12/22
--- OUTSIDE RECORDS SUMMARY | 2024-11-27 00:36 | XMS_ITS | Referral Summary ---
Author Organization [facility] Address [address] [place] [address] Care Team Providers Care Machine Pecan Picker Name Role Phone Sunny Villanueva MD Unavailable [phone] No, Physician Primary Care Provider [phone] Jeffrey Haas MA Unavailable Unavailable Angel Luis Fritz MD Unavailable [phone] Allergies No known active allergies Medications olopatadine [...] often do you attend chur ch or samaritan services? More than 4 times per year [...] place to sleep or slept in a alf (including now)? No 06/12/2022 Personal Safety Answer Date Recorded Getting School Help Needed Not on file 06/29 Sex and Gender Information Value Date Recorded Sex Assigned at Not on file Legal Sex Male 1:21 AM HYPNOTHERAPIST Gender Identity Not on file Sexual Orientation Not on file Last Filed Vital Signs Vital Sign Reading Time Taken Comments Blood Pressure 158/97 06/12/2022 3:45 PM HYPNOTHERAPIST Pulse 77 06/12/2022 3:45 PM HYPNOTHERAPIST Temperature 36.8 C (98.3 F) 06/12/2022 3:45 PM HYPNOTHERAPIST Respiratory Rate 18 06/12/2022 3:45 PM HYPNOTHERAPIST Oxygen Saturation 99% 06/12/2022 3:45 PM HYPNOTHERAPIST Inhaled Oxygen Concentration - - Weight 133 kg (293 lb 4.8 oz) 06/11/2022 7:10 PM HYPNOTHERAPIST Height 190.5 cm (6' 3 ) 06/11/2022 7:10 PM HYPNOTHERAPIST Body Mass Index 36.66 06/11/2022 7:10 PM HYPNOTHERAPIST Plan of Treatment Not on file Procedures Procedure Name Priority Date/Time Associated Diagnosis Comments EGFR Routine 06/12/2022 5:34 AM HYPNOTHERAPIST HEMOGLOBIN A1C Routine 06/12/2022 5:34 AM HYPNOTHERAPIST LIPID PANEL Routine 06/12/2022 5:34 AM HYPNOTHERAPIST from Last 3 Months or Most Recently Relevant to Health Maintenance Results * eGFR (06/12/2022 5:34 AM HYPNOTHERAPIST) eGFR 79 mL/min/1. 73 m2 [facility] Comment: Interpretive Data Reference Interval Normal [...] last reviewed 2021. Blood 06/12/2022 5:34 AM HYPNOTHERAPIST 06/12/2022 6:28 AM HYPNOTHERAPIST Sebastien Jackson DO LAB BLOOD ORDERABLES Fi nal Result [facility] [address] [place] [address] * Hemoglobin A1c (06/12/2022 5:34 AM HYPNOTHERAPIST) Pathologist [facility] Hgb A1C 5.6 4.0 - 5.6 % [facility] Estimated Average Glucose 114 mg/dL [facility] Comment: The ADA recommends reporting an estimated Average Glucose (eAG) with all Hemoglobin A1c results using the equation derived from a study of 507 normal and diabetic adults. Minority populations were underrepresented and children were not included. (Diabetes Care 31:1205-5331, 2008). The eAG is not equivalent to a fasting glucose. Blood 06/12/2022 5:34 AM HYPNOTHERAPIST 06/12/2022 6:28 AM HYPNOTHERAPIST us Sebastien Jackson DO LAB BLOOD ORDERABLES Fi nal Result [facility] [address] Department [place] [address] * Lipid panel (06/12/2022 5:34 AM HYPNOTHERAPIST) Cholesterol 193 30 - 199 mg/dL [facility] Comment: Interpretive Data Ages < or = [...] revised on 2018. Triglycerides 104 <=149 mg/dL [facility] Comment: Interpretive Data Ages < or = [...] revised on 2018. HDL 43 >=40 mg/dL [facility] Comment: Interpretive Data Ages < or = [...] on 2018. LDL, calculated 129 <=129 mg/dL [facility] Comment: Interpretive Data Ages < or = [...] revised on 2018. Non-HDL Cholesterol 150 mg/dL [facility] Comment: Interpretive Data Ages < or = [...] last revised on 2018. Chol/HDL ratio 4 [facility] Blood 06/12/2022 5:34 AM HYPNOTHERAPIST 06/12/2022 6:28 AM HYPNOTHERAPIST Sebastien Jackson DO LAB BLOOD ORDERABLES Fi nal Result [facility] [address] [place] [address] from Last 3 Months or Most Recently Relevant to Health Maintenance Insurance MEDICARE MEDICARE MEDICARE Advance Directives For more information, please contact: [phone] * Full Code (Latest Code Status on File) Date Activated Date Inactivated Comments 06/11/2022 7:01 PM 06/12/2022 10:19 PM * Full Code Date Activated Date Inactivated Comments 08/07/2020 3:35 AM 08/09/2020 6:09 PM * Full Code Date Activated Date Inactivated Comments 08/07/2020 12:47 AM 08/07/2020 3:05 AM * Full Code Date Activated Date Inactivated Comments 12/26/2017 7:06 PM 12/28/2017 3:49 PM Care Teams Machine Pecan Picker Relationship Specialty Start Date End Date No, Physician PCP - General 08/29/21 Sunny Villanueva MD 01/18/19 Jeffrey Haas MA [address] [facility] [address] [place] [address] Patient Navigator 12/20/21 Angel Luis Fritz MD [address] [facility] [address] [place] [address] Consulting Physician Neurology 06/12/22
--- OUTSIDE RECORDS SUMMARY | 2024-11-27 00:36 | XMS_ITS | Clinical Summary ---
Author Organization [facility] Address [address] [place] [address] Phone Care Team Providers Care Drilling Engineering Manager Name Role Phone Unavailable Primary Care Provider [...] 9 Active fluticasone propionate (FLONASE) 50 mcg/spray [place], Suspension nasal inhaler Administer 2 Sprays in [...] on file Legal Sex Male 6:12 AM HANDICAPPED TEACHER Gender Identity Not on file Sexual Orientation [...]
--- OUTSIDE RECORDS SUMMARY | 2024-11-27 00:36 | XMS_ITS | Clinical Summary ---
Author Organization [facility] Address [address] [facility] [place] [address] Care Team Providers Care Mess Attendant Name Role Phone Sunny Villanueva MD Primary Care Provider + [phone] Source Comments [facility],non-owned Affiliates and Associated Physician Practices is amultiple site organization consisting of ambulatory clinics and hospital sitesin [place], [place], [place] and [place]. This disclosure is being madepursuant to the Care Everywhere program and may not contain all information available regarding this patient. Last updated 18.[facility] Allergies No known active allergies Medications * [...] complete this topic Insurance MEDICARE Care Teams Mess Attendant Relationship Specialty Start Date End Date Sunny Villanueva MD PCP - General Internal Medicine 03/17/17
--- OUTSIDE RECORDS SUMMARY | 2024-11-27 00:36 | XMS_ITS | Clinical Summary ---
Author Organization [facility] Address [address] [place] [address] Care Team Providers Care Fuel Tank Sealer And Tester Name Role Phone Sunny Villanueva MD Primary Care Provider + [phone] Allergies No known active allergies Medications [email or web address] [...] complete this topic Insurance MEDICARE Care Teams Fuel Tank Sealer [employer] Tester Relationship Specialty Start Date End Date Sunny Villanueva MD PCP - General INTERNAL MEDICINE 11/27/17
== END 2024-11-27 00:25 | disposition left against medical advice (07) ==
LOC: ANHED 11-27 00:34
PROVIDERS: Emergency Provider Emergency Medicine; PCP Internal Medicine
DX: K08.89 Other specified disorders of teeth and supporting structures (principal)
CPT/HCPCS: 99281